=== PATIENT | male | born 1965 | race American Indian/Alaskan Native ===

== ENCOUNTER 2017-11-11 19:54 | Emergency (ER) | payer SELFPAY ==
--- NOTE | 2017-11-11 22:20 | Emergency Department Report ---
ED General Adult HPI - General Chief complaint: Rectal Pain Stated complaint: RECTAL ABCESS Time Seen by Provider: 11/11/17 22:03 Source: patient Mode of arrival: Ambulatory Limitations: No Limitations - History of Present Illness Initial comments: 2-3 wks of rectal pain. Worse with sitting. No urinary pain or pain on defecation. Afebrile. No n/v/d. Denies abd pain. Says that his body just feels sick. No urinary problems. Seen in the ER 3 months ago for similar complaint, which required I&D. No medical problems. - Related Data Previous Rx's Medication Instructions Recorded Last Taken Type HYDROcodone/APAP 5-325 [[place]ry 1 each PO Q8HR PRN #20 tablet 01/10/13 Unknown Rx 5/325 mg] HYDROcodone/APAP 5-325 [[place] 1 each PO Q8HR PRN #14 tablet 01/30/14 Unknown Rx 5/325] Levofloxacin [Levaquin] 750 mg PO QDAY #10 tablet 01/30/14 Unknown Rx Acetaminophen/Codeine [Tylenol #3] 1 tab PO Q6H PRN #15 tab 07/18/15 Unknown Rx Sulfamethoxazole/Trimethoprim 1 each PO BID #28 tablet 07/18/15 Unknown Rx [Bactrim DS TAB] Cephalexin [Keflex] 500 mg PO Q8HR #12 cap 11/11/17 Unknown Rx Allergies Allergy/AdvReac Type Severity Reaction Status Date / Time No Known Allergies Allergy Unverified 01/10/13 09:16 ED Review of Systems ROS: Stated complaint: RECTAL ABCESS Other details as noted in HPI Comment: All other systems reviewed and negative Skin: rash ED Past Medical Hx - Past Medical History Previous Medical History?: No - Surgical History Past Surgical History?: No - Social History Smoking Status: Current Every Day Smoker Substance Use Type: None - Medications Home Medications: Home Medications Medication Instructions Recorded Confirmed Last Taken Type HYDROcodone/APAP 5-325 [[place]ry 1 each PO Q8HR PRN #20 tablet 01/10/13 Unknown Rx 5/325 mg] HYDROcodone/APAP 5-325 [[place] 1 each PO Q8HR PRN #14 tablet 01/30/14 Unknown Rx 5/325] Levofloxacin [Levaquin] 750 mg PO QDAY #10 tablet 01/30/14 Unknown Rx Acetaminophen/Codeine [Tylenol #3] 1 tab PO Q6H PRN #15 tab 07/18/15 Unknown Rx Sulfamethoxazole/Trimethoprim 1 each PO BID #28 tablet 07/18/15 Unknown Rx [Bactrim DS TAB] Cephalexin [Keflex] 500 mg PO Q8HR #12 cap 11/11/17 Unknown Rx ED Physical Exam - General Limitations: No Limitations General appearance: alert, in no apparent distress - Head Head exam: Present: atraumatic, normocephalic - Eye Eye exam: Present: normal appearance - ENT ENT exam: Present: mucous membranes moist - Neck Neck exam: Present: normal inspection - Respiratory Respiratory exam: Present: normal lung sounds bilaterally. Absent: respiratory distress - Cardiovascular Cardiovascular Exam: Present: regular rate, normal rhythm. Absent: systolic murmur, diastolic murmur, rubs, gallop - GI/Abdominal GI/Abdominal exam: Present: soft, normal bowel sounds. Absent: distended, tenderness, guarding - Rectal Rectal exam: Present: deferred, other (left buttock with 1 cm circular purulent nodule x2. No perineal induration. Testicle exam unremarkable. ) - Extremities Exam Extremities exam: Present: normal inspection - Back Exam Back exam: Present: normal inspection - Neurological Exam Neurological exam: Present: alert, oriented X3 - Psychiatric Psychiatric exam: Present: normal affect, normal mood - Skin Skin exam: Present: warm, dry, intact, normal color. Absent: rash ED Course Vital Signs 11/11/17 11/11/17 20:42 22:29 Temperature 98.1 F 97.9 F Pulse Rate 61 51 L Respiratory 17 14 Rate Blood Pressure 118/79 Blood Pressure 112/68 [Left] O2 Sat by Pulse 99 98 Oximetry - I & D Left Buttocks Type of Procedure: Simple Blade Size: 11 Progress: Bedside ultrasound was used to visualize abscess pocket prior to incision. It was approximately 1/2 cm deep subcutaneous tissue. No vascular structures were seen around the abscess. Incision site was cleaned with a ChloraPrep 2. Abscess was incised with 11 blade. Purulent material was obtained. Loculations were broken up with hemostats. Wound was irrigated with normal saline. ED Medical Decision Making - Medical Decision Making 52-year-old male with no significant past medical history that presents to the ER with concern for buttock abscess. Vital signs are stable. Patient's well- appearing. No dental pain. Left buttock with 2 -1 cm purulent nodules. These were incised and drained. See procedure note for details. Patient has no medial induration. Testicular exam is unremarkable. Low suspicion for Juan Luis 's gangrene. He denies any urinary complaints at this point in time. Patient will be started on Keflex for antibiotic coverage and instructed to do sitz baths for the next 48 hours. Tetanus was updated in the ER. - Differential Diagnosis abscess, cellulitis, fourniere's, hemorrhoids Critical care attestation.: If time is entered above; I have spent that time in minutes in the direct care of this critically ill patient, excluding procedure time. ED Disposition Clinical Impression: Abscess Disposition: DC-01 TO HOME OR SELFCARE Is pt being admited?: No Does the pt Need Aspirin: No Condition: Stable Instructions: Abscess (ED) Additional Instructions: Sit in a warm bath with epson salt 3 times a day for 10 minutes each time for the next 48 hours. Prescriptions: Cephalexin [Keflex] 500 mg PO Q8HR #12 cap Referrals: PRIMARY CARE, [Primary Care Provider] - 3-5 Days
[2017-11-11] MEDS ORDERED: ULTRAM PO ONE (22:21)
[2017-11-11] MEDS ORDERED: KEFLEX PO ONE (22:21)
[2017-11-11 22:30] VITALS: BP 112/68
[2017-11-11] MEDS ORDERED: XYLOCAINE 1% MPF 5 mL ONE (22:30)
[2017-11-11] MEDS ORDERED: XYLOCAINE 1%/ EPI 1:100,000 INFILTRATI NR (23:00)
[2017-11-11] MEDS ORDERED: BOOSTRIX IM ONE (23:34)
== END 2017-11-11 23:55 | disposition home or self-care (01) ==
LOC: ED 19:54
DX: K61.1 Rectal abscess (principal); F17.200 Nicotine dependence, unspecified, uncomplicated
CPT/HCPCS: 90471; 90715; 99282

== ENCOUNTER 2017-11-25 07:44 | Inpatient (IN) | payer OTHER ==
[2017-11-25] MEDS ORDERED: TORADOL IV ONE (10:24)
[2017-11-25] MEDS ORDERED: CLEOCIN 600 MG/50 mL 600 MG/50 ML BAG IV ONE (10:25)
--- NOTE | 2017-11-25 10:27 | Emergency Department Report ---
Blank Doc - Documentation Documentation: Patient is a 52-year-old [place] male who is one-week status post I&D of a abscess to the left buttock who states for the last 24 hours he is now developed some swelling to the perineum. Patient is not diabetic and denies any fever. Patient states that he has some discomfort when he has a bowel movement and feels a stinging sensation. On focused physical exam do see the area that he had his I&D in the left buttock approximately 2 cm away from the anus. Patient now has a firm swelling to the perineum. Patient has no testicular pain at this time. CT of the abdomen and pelvis will be done to evaluate this area. Last been drawn patient be reassessed.
[2017-11-25 11:10] LABS: Alanine Aminotransferase 18 units/L (7-56); Albumin 4.2 g/dL (3.9-5); BUN/Creatinine Ratio 15; Blood Urea Nitrogen 15 mg/dL (9-20); Calcium 9.6 mg/dL (8.4-10.2); Hemolysis Index 2
--- NOTE | 2017-11-25 12:12 | Emergency Department Report ---
ED Male HPI - General Chief complaint: Urogenital-Male Stated complaint: SWOLLEN GENITAL Time Seen by Provider: 11/25/17 10:00 Source: patient Mode of arrival: Ambulatory Limitations: No Limitations - History of Present Illness Initial comments: This is a 52-year-old male nontoxic, well nourished in appearance, no acute signs of distress presents to the ED with c/o of scrotal swelling x1 day. Patient stated that he had a incision and drainage in his perianal area and has finished a course of antibiotics and resolved but then scrotal swelling occurred yesterday. Patient denies any trauma to the area. Patient denies any fever, chills, nausea, vomiting, chest pain, short of breath, headache, stiff neck, numbness or tingling. She denies any pus or drainage. Patient denies any testicular pain or penile pain. Patient denies any penile discharge. Patient denies any allergies to significant past medical history. MD Complaint: other (scrotal swelling) -: days(s) (1) Radiation: none Severity: mild Severity scale (0 -10): 8 Quality: aching Consistency: constant Improves with: none Worsens with: none swelling. denies: discharge, mass, rash, urinary retention, blood in urine, dysuria, fever, nausea/vomiting, incontinence - Related Data Home Medications Medication Instructions Recorded Confirmed Last Taken No Known Home Medications [No 11/25/17 11/25/17 Unknown Reported Home Medications] Allergies Allergy/AdvReac Type Severity Reaction Status Date / Time No Known Allergies Allergy Unverified 01/10/13 09:16 ED Review of Systems ROS: Stated complaint: SWOLLEN GENITAL Other details as noted in HPI Constitutional: denies: chills, fever Eyes: denies: eye pain, eye discharge, vision change ENT: denies: ear pain, throat pain Respiratory: denies: cough, shortness of breath, wheezing Cardiovascular: denies: chest pain, palpitations Endocrine: no symptoms reported Gastrointestinal: denies: abdominal pain, nausea, diarrhea Genitourinary: denies: urgency, dysuria Musculoskeletal: denies: back pain, joint swelling, arthralgia Skin: denies: rash, lesions Neurological: denies: headache, weakness, paresthesias Psychiatric: denies: anxiety, depression Hematological/Lymphatic: denies: easy bleeding, easy bruising ED Past Medical Hx - Past Medical History Previous Medical History?: No - Social History Smoking Status: Current Every Day Smoker - Medications Home Medications: Home Medications Medication Instructions Recorded Confirmed Last Taken Type No Known Home Medications [No 11/25/17 11/25/17 Unknown History Reported Home Medications] ED Physical Exam - General Limitations: No Limitations General appearance: alert, in no apparent distress - Head Head exam: Present: atraumatic, normocephalic - Eye Eye exam: Present: normal appearance Pupils: Present: normal accommodation - ENT ENT exam: Present: normal exam, mucous membranes moist - Neck Neck exam: Present: normal inspection, full ROM - Respiratory Respiratory exam: Present: normal lung sounds bilaterally. Absent: respiratory distress, wheezes, rales, rhonchi, stridor, chest wall tenderness, accessory muscle use, decreased breath sounds, prolonged expiratory - Cardiovascular Cardiovascular Exam: Present: regular rate, normal rhythm, normal heart sounds. Absent: bradycardia, tachycardia, irregular rhythm, systolic murmur, diastolic murmur, rubs, gallop - GI/Abdominal GI/Abdominal exam: Present: soft, normal bowel sounds. Absent: distended, tenderness, guarding, rebound, rigid, diminished bowel sounds - Rectal Rectal exam: Present: deferred - exam: Present: scrotal swelling. Absent: testicular tenderness, urethral discharge, vertical testicular lie External exam: Present: normal external exam. Absent: erythema, swelling, lesions, lacerations, ecchymosis, bleeding - Extremities Exam Extremities exam: Present: normal inspection, full ROM, normal capillary refill. Absent: tenderness, pedal edema - Back Exam Back exam: Present: normal inspection, full ROM. Absent: tenderness, CVA tenderness (R), CVA tenderness (L), muscle spasm, paraspinal tenderness, vertebral tenderness, rash noted - Neurological Exam Neurological exam: Present: alert, oriented X3, normal gait - Psychiatric Psychiatric exam: Present: normal affect, normal mood - Skin Skin exam: Present: warm, dry, intact, normal color. Absent: rash ED Course Vital Signs 11/25/17 07:54 Temperature 98.6 F Pulse Rate 75 Respiratory 15 Rate Blood Pressure 125/76 O2 Sat by Pulse 97 Oximetry - Reevaluation(s) Reevaluation #1: 11/25/17 14:18 Patient is speaking in full sentences with no signs of distress noted. - Consultations Consultation #1: 11/25/17 14:19 Patient has been consulted with Maude Beebe about patient history, physical exam, and labs and examined and screened patient and admission. ED Medical Decision Making - Lab Data Result diagrams: 11/25/17 12:19 11/25/17 10:30 - Medical Decision Making 52-year-old male that presents with scrotal swelling. Patient's abdomen was examined by me and Dr. Renteria. CT obtained. Labs with elevated WBC. PAtient received Levo and Cipro in the ED IV. PAtient was consulted with Dr. Bruno ( hospitalist) and accepts patient to services. At time of admission, the patient does not seem toxic or ill in appearance. No acute signs of distress noted. Patient agrees to admission treatment plan of care. No further questions noted by the patient. Critical care attestation.: If time is entered above; I have spent that time in minutes in the direct care of this critically ill patient, excluding procedure time. ED Disposition Clinical Impression: Scrotal swelling, Failure of outpatient treatment Disposition: OP ADMIT IP TO THIS HOSP Is pt being admited?: Yes Condition: Stable Referrals: PRIMARY CARE,MD [Primary Care Provider] - 3-5 Days
--- NOTE | 2017-11-25 12:40 | Cat Scan Report ---
CT ABDOMEN AND PELVIS WITH CONTRAST INDICATION: Perineal swelling. Recent incision and drainage of right buttock abscess. COMPARISON: 01/30/2014 CT. FINDINGS: Abdomen and pelvis CT performed following intravenous administration of 100 cc of Omnipaque 300. Contrast though noted only on the delayed phase images due to technical difficulty. LUNG BASES: Normal heart size. No effusions. Nonspecific distal esophageal wall prominence/thickening, not excluded for gastroesophageal reflux and/or hiatal hernia, amongst others. ABDOMEN: Liver, spleen, gallbladder, pancreas, adrenals, nonaneurysmal abdominal aorta, IVC and kidneys grossly within normal limits bilaterally without hydronephrosis, ascites or size significant adenopathy. A 3 mm indeterminate hepatic hypodensity centrally possible, axial series 4, image 12. Nonopacified GI tract evaluation limited, though grossly nonobstructive. Normal appendix. PELVIS: Mildly enlarged prostate creating an impression at the bladder base may again be correlated for clinically and with PSA. Mild urinary bladder diffuse exaggerated wall thickness again noted. Few prostatic calcifications. Few pelvic phleboliths. Unremarkable rectosigmoid. No free fluid or significant pelvic adenopathy. Stable 1.7 cm fat containing left inguinal hernia. Few small bilateral inguinal, likely reactive lymph nodes slightly more prominent measuring up to approximately 2 x 1.2 cm on the left, axial image 77, series 4. Asymmetric inflammatory changes/density measuring approximately 5 x 1.6 cm noted in the left perineum posteriorly, axial image 19 with minimal central hypodensity/possible fluid, though not felt to represent significant drainable component. Severe L5-S1 disc narrowing with vacuum phenomenon and mild degenerative spurring again noted. Additional mild degenerative spurring at few spinal levels. CONCLUSION: 1. Approximately 5 x 1.6 cm left posterior perineal inflammatory changes noted, as detailed above. No right buttock inflammatory changes or abscess identified. 2. Few other incidental findings as severe L5-S1 disc narrowing and an enlarged prostate with urinary bladder wall thickening, amongst others, as above. Thank you for the opportunity to participate in this patient's care.
[2017-11-25 12:45] LABS: Basophils # (Auto) 0.1 K/mm3 (0.0-0.1); Basophils % (Auto) 0.9 % (0.0-1.8); Eosinophils % (Auto) 0.2 % (0.0-4.3); Hematocrit 40.3 % (35.5-45.6); Hemoglobin 14.4 gm/dl (11.8-15.2); Lymphocytes # (Auto) 2.2 K/mm3 (1.2-5.4); Lymphocytes % (Auto) 13.2 % (13.4-35.0); Mean Corpuscular HGB Conc 36 % (32-34); Mean Corpuscular Hemoglobin 30 pg (28-32); Mean Corpuscular Volume 84 fl (84-94); Monocytes # (Auto) 1.9 K/mm3 (0.0-0.8); Monocytes % (Auto) 11.7 % (0.0-7.3); Platelet Count 234 K/mm3 (140-440); Red Blood Count 4.78 M/mm3 (3.65-5.03); Red Cell Distribution Width 13.4 % (13.2-15.2)
[2017-11-25] MEDS ORDERED: LEVAQUIN 750MG/150ML 750 MG/150 ML BAG IV ONE (13:48)
[2017-11-25] MEDS ORDERED: ZOFRAN IV PRN (14:53)
[2017-11-25] MEDS ORDERED: MORPHINE IV PRN (14:53)
[2017-11-25] MEDS ORDERED: PROVENTIL IH PRN (14:53)
[2017-11-25] MEDS ORDERED: TYLENOL PO PRN (14:53)
[2017-11-25] MEDS ORDERED: SODIUM CHLORIDE FLUSH SYRINGE 10 ML IV PRN (14:53)
--- NOTE | 2017-11-25 14:58 | History and Physical Report ---
History of Present Illness Chief complaint: I swollen History of present illness: 52 YO Male with Nicotine Dependence presents to ED for evaluation. Pt states that he has experienced swelling and pain in the perineum over the past 1 day with persistently worsening symptoms over the same time frame. Pt states that he had an incision and drainage in his perianal area for an abscess and has finished a course of antibiotics. Pt states that his symptoms had resolved but resumed after antibiotic therapy was finished. Patient denies fever, chills, foul drainage, trauma to the area, or recent ill contacts. Pt seen and evaluated in ED and found to have cellulitis to the perineum. Past History Past Medical History: other (Nicotine dependence) Past Surgical History: Other (perineal I&D) Social history: , smoking Family history: no significant family history Medications and Allergies Allergies Allergy/AdvReac Type Severity Reaction Status Date / Time No Known Allergies Allergy Unverified 01/10/13 09:16 Home Medications Medication Instructions Recorded Confirmed Last Taken Type No Known Home Medications [No 11/25/17 11/25/17 Unknown History Reported Home Medications] Active Meds: Active Medications Acetaminophen (Tylenol) 650 mg PO Q4H PRN PRN Reason: Pain MILD(1-3)/Fever >100.5/[facility] Albuterol (Proventil) 2.5 mg IH Q4HRT PRN PRN Reason: Shortness Of Breath Levofloxacin/Dextrose (Levaquin 750mg/150ml) 750 mg in 150 mls @ 100 mls/hr IV ONCE ONE Stop: 11/25/17 15:17 Last Admin: 11/25/17 14:01 Dose: 100 mls/hr Levofloxacin/Dextrose (Levaquin 750mg/150ml) 750 mg in 150 mls @ 100 mls/hr IV Q24HR FAHAD; Protocol Morphine Sulfate (Morphine) 2 mg IV Q4H PRN PRN Reason: Pain, Moderate (4-6) Ondansetron HCl (Zofran) 4 mg IV Q8H PRN PRN Reason: Nausea And Vomiting Oxycodone/Acetaminophen (Percocet 5/325) 1 tab PO Q6H PRN PRN Reason: Pain, Moderate (4-6) Sodium Chloride (Sodium Chloride Flush Syringe 10 Ml) 10 ml IV BID FAHAD Sodium Chloride (Sodium Chloride Flush Syringe 10 Ml) 10 ml IV PRN PRN PRN Reason: LINE FLUSH Review of Systems Constitutional: no weight loss, no weight gain, no fever, no chills Ears, nose, mouth and throat: no ear pain, no ear discharge, no tinnitis, no decreased hearing, no nose pain, no nasal congestion Cardiovascular: no chest pain, no orthopnea, no palpitations, no rapid/ irregular heart beat, no edema Respiratory: no cough, no cough with sputum, no excessive sputum, no hemoptysis , no shortness of breath Gastrointestinal: no nausea, no vomiting, no diarrhea, no constipation, no change in bowel habits Genitourinary Male: urinary hesitancy, nocturia, no dysuria, no hematuria, no incontinence, no testicular pain, no testicular lump, no kidney stones Rectal: no pain, no incontinence, no bleeding Musculoskeletal: no neck stiffness, no neck pain, no shooting arm pain, no arm numbness/tingling, no low back pain, no shooting leg pain Integumentary: no rash, no redness, no sores Neurological: no transient paralysis, no paralysis, no weakness, no parathesias , no numbness, no tingling, no seizures Psychiatric: no anxiety, no memory loss, no change in sleep habits, no sleep disturbances, no insomnia, no hypersomnia, no change in appetite, no change in libido Endocrine: no cold intolerance, no heat intolerance, no polyphagia, no excessive thirst, no polydipsia, no polyuria, no nocturia Hematologic/Lymphatic: no easy bruising, no easy bleeding, no lymphadenopathy, no lymphedema Allergic/Immunologic: no urticaria, no allergic rhinitis, no wheezing Exam - Constitutional Vitals: Temp Pulse Resp BP Pulse Ox 98.6 F 75 15 125/76 97 11/25/17 07:54 11/25/17 07:54 11/25/17 07:54 11/25/17 07:54 11/25/17 07:54 General appearance: Present: mild distress - EENT Eyes: Present: PERRL ENT: hearing intact, clear oral mucosa - Neck Neck: Present: supple, normal ROM - Respiratory Respiratory effort: normal Respiratory: bilateral: CTA - Cardiovascular Heart Sounds: Present: S1 & S2. Absent: rub, click - Extremities Extremities: pulses symmetrical, No edema Peripheral Pulses: within normal limits - Abdominal General gastrointestinal: Present: soft, non-tender, non-distended, normal bowel sounds Male genitourinary: Present: tender (erythema, induration to perineum) - Integumentary Integumentary: Present: clear, warm, dry - Musculoskeletal Musculoskeletal: gait normal, strength equal bilaterally - Psychiatric Psychiatric: appropriate mood/affect, intact judgment & insight - Neurologic Neurologic: CNII-XII intact, moves all extremities Results - Labs CBC & Chem 7: 11/25/17 12:19 11/25/17 10:30 Labs: Abnormal lab results 11/25/17 Range/Units 12:19 WBC 16.5 H (4.5-11.0) K/mm3 MCHC 36 H (32-34) % Lymph % (Auto) 13.2 L (13.4-35.0) % [place] % (Auto) 11.7 H (0.0-7.3) % [place] # 1.9 H (0.0-0.8) K/mm3 Seg Neutrophils % 74.0 H (40.0-70.0) % Seg Neutrophils # 12.2 H (1.8-7.7) K/mm3 Assessment and Plan - Patient Problems (1) SIRS (systemic inflammatory response syndrome) Current Visit: Yes Status: Acute Plan to address problem: IV antibiotics, IVF resuscitation, wound care, CT Abdomen pelvis, serial exam of perineum. (2) Cellulitis, perineum Current Visit: Yes Status: Acute Plan to address problem: IV antibiotics, wound care, pain control. (3) Cystitis Current Visit: Yes Status: Acute Plan to address problem: IV antibiotics, monitor uop q shift, outpatient urology f/u care. (4) DVT prophylaxis Current Visit: Yes Status: Acute Plan to address problem: scd to ble while in bed.
[2017-11-25 14:59] LABS: Bilirubin,Urine Negative (Negative); Blood,Urine Negative (Negative); Color,Urine Straw (Yellow)
[2017-11-25 15:00] LABS: RBC,Urine < 1.0 /HPF (0.0-6.0); Urobilinogen,Urine < 2.0 mg/dL (<2.0); WBC,Urine < 1.0 /HPF (0.0-6.0)
[2017-11-25] MEDS ORDERED: PERCOCET 5/325 ONE (15:40)
[2017-11-25] MEDS: PERCOCET 5/325 PO PRN (15:45)
[2017-11-25] MEDS: SODIUM CHLORIDE FLUSH SYRINGE 10 ML IV SCH (22:40)
[2017-11-26] MEDS: PERCOCET 5/325 PO PRN ×2 (09:02→21:08)
[2017-11-26] MEDS: LEVAQUIN 750MG/150ML 750 MG/150 ML BAG IV SCH (10:05)
[2017-11-26 10:18] LABS: Basophils % (Auto) 0.3 % (0.0-1.8); Eosinophils # (Auto) 0.1 K/mm3 (0.0-0.4); Eosinophils % (Auto) 0.4 % (0.0-4.3); Hematocrit 37.6 % (35.5-45.6); Hemoglobin 13.1 gm/dl (11.8-15.2); Lymphocytes # (Auto) 1.7 K/mm3 (1.2-5.4); Lymphocytes % (Auto) 8.8 % (13.4-35.0); Mean Corpuscular HGB Conc 35 % (32-34); Mean Corpuscular Hemoglobin 30 pg (28-32); Mean Corpuscular Volume 85 fl (84-94); Monocytes # (Auto) 2.3 K/mm3 (0.0-0.8); Platelet Count 199 K/mm3 (140-440); Red Cell Distribution Width 13.6 % (13.2-15.2)
[2017-11-26] MEDS: SODIUM CHLORIDE FLUSH SYRINGE 10 ML IV SCH ×2 (10:37→21:10)
--- NOTE | 2017-11-26 14:55 | Progress Note ---
Assessment and Plan Assessment and plan: 52-year-old -[place] male with past medical history significant for perineal abscess presented to the emergency department his complaints of fever and pain around the perineal area. Sepsis - Evidenced by leukocytosis and fever - Blood culture ordered Perineal cellulitis, ?Abscess - Continue IV antibiotics - Pain control - Surgery consult DVT prophylaxis - On Lovenox Disposition - Continue inpatient care History Interval history: Patient was seen and evaluated this morning, patient was complaining pain around the perineal area. Hospitalist Physical - Physical exam Narrative exam: Not in cardiopulmonary distress. The patient appeared well nourished and normally developed. Vital signs as documented. Head exam is unremarkable. No scleral icterus . Neck is without jugular venous distension, thyromegaly, or carotid bruits. Lungs are clear to auscultation. Cardiac exam reveals regular rate and Rhythm. First and second heart sounds normal. No murmurs, rubs or gallops. Abdominal exam reveals normal bowel sounds, no masses, no organomegaly and no aortic enlargement. Extremities are nonedematous and both femoral and pedal pulses are normal. Pain and tenderness around the perineal area. MUSEUM DIRECTOR: Alert and oriented 3. No focal weakness. - Constitutional Vitals: Temp Pulse Resp BP Pulse Ox 99.0 F 59 L 18 112/67 96 11/26/17 12:21 11/26/17 12:21 11/26/17 12:21 11/26/17 12:21 11/26/17 12:21 General appearance: Present: mild distress Results - Labs CBC & Chem 7: 11/26/17 09:42 11/25/17 10:30 Labs: Laboratory Last Values WBC 18.9 K/mm3 (4.5-11.0) H 11/26/17 09:42 RBC 4.40 M/mm3 (3.65-5.03) 11/26/17 09:42 Hgb 13.1 gm/dl (11.8-15.2) 11/26/17 09:42 Hct 37.6 % (35.5-45.6) 18 09:42 MCV 85 fl (84-94) 11/26/17 09:42 MCH 30 pg (28-32) 11/26/17 09:42 MCHC 35 % (32-34) H 11/26/17 09:42 RDW 13.6 % (13.2-15.2) 11/26/17 09:42 Plt Count 199 K/mm3 (140-440) 11/26/17 09:42 Lymph % (Auto) 8.8 % (13.4-35.0) L 11/26/17 09:42 [place] % (Auto) 12.0 % (0.0-7.3) H 11/26/17 09:42 Eos % (Auto) 0.4 % (0.0-4.3) 11/26/17 09:42 Baso % (Auto) 0.3 % (0.0-1.8) 11/26/17 09:42 Lymph # 1.7 K/mm3 (1.2-5.4) 11/26/17 09:42 [place] # 2.3 K/mm3 (0.0-0.8) H 11/26/17 09:42 Eos # 0.1 K/mm3 (0.0-0.4) 11/26/17 09:42 Baso # 0.0 K/mm3 (0.0-0.1) 11/26/17 09:42 Seg Neutrophils % 78.5 % (40.0-70.0) H 11/26/17 09:42 Seg Neutrophils # 14.9 K/mm3 (1.8-7.7) H 11/26/17 09:42 Sodium 138 mmol/L (137-145) 11/25/17 10:30 Potassium 4.1 mmol/L (3.6-5.0) 11/25/17 10:30 Chloride 101.5 mmol/L (98-107) 11/25/17 10:30 Carbon Dioxide 25 mmol/L (22-30) 11/25/17 10:30 Anion Gap 16 mmol/L 11/25/17 10:30 BUN 15 mg/dL (9-20) 11/25/17 10:30 Creatinine 1.0 mg/dL (0.8-1.5) 11/25/17 10:30 Estimated GFR > 60 ml/min 11/25/17 10:30 BUN/Creatinine Ratio 15 % 11/25/17 10:30 Glucose 93 mg/dL (75-100) 11/25/17 10:30 Calcium 9.6 mg/dL (8.4-10.2) 11/25/17 10:30 Total Bilirubin 0.80 mg/dL (0.1-1.2) 11/25/17 10:30 AST 20 units/L (5-40) 11/25/17 10:30 ALT 18 units/L (7-56) 11/25/17 10:30 Alkaline Phosphatase 90 units/L (35-129) 11/25/17 10:30 Total Protein 7.7 g/dL (6.3-8.2) 11/25/17 10:30 Albumin 4.2 g/dL (3.9-5) 11/25/17 10:30 Albumin/Globulin Ratio 1.2 % 11/25/17 10:30 Prostate Specific Ag 0.19 ng/mL (0.00-4.00) 11/25/17 16:27 Urine Color Straw (Yellow) 11/25/17 12:28 Urine Turbidity Clear (Clear) 11/25/17 12:28 Urine pH 6.0 (5.0-7.0) 11/25/17 12:28 Ur Specific [place] 1.010 (1.003-1.030) 11/25/17 12:28 Urine Protein 30 mg/dl mg/dL (Negative) 11/25/17 12:28 Urine Glucose (UA) Negative mg/dL (Negative) 11/25/17 12:28 Urine Ketones Negative mg/dL (Negative) 11/25/17 12:28 Urine Blood Negative (Negative) 11/25/17 12:28 Urine Nitrite Negative (Negative) 11/25/17 12:28 Urine Bilirubin Negative (Negative) 11/25/17 12:28 Urine Urobilinogen < 2.0 mg/dL (<2.0) 11/25/17 12:28 Ur Leukocyte Esterase Negative (Negative) 11/25/17 12:28 Urine WBC (Auto) < 1.0 /HPF (0.0-6.0) 11/25/17 12:28 Urine RBC (Auto) < 1.0 /HPF (0.0-6.0) 11/25/17 12:28
--- NOTE | 2017-11-26 14:56 | Consultation ---
History of Present Illness Consult date: 11/26/17 Chief complaint: scrotal swelling - History of present illness History of present illness: 52-year-old male with no past medical history presents to the emergency room with complaints of not feeling well, generalized body aches and chills, and scrotal swelling. Patient was in the emergency room approximately 2 weeks ago for a boil on his left buttock. The patient underwent incision and drainage in the emergency room and was given instructions for sitz baths as well as oral antibiotics. He states that he felt well up until the last day of his antibiotics, when he started feeling weak, having generalized body aches, and chills. He did not check his temperature, but states he felt hot and cold. Dates she also noted a knot on his scrotum, following in the perineum, and difficulty with urinating. He has never had an abscess like this in the past. He has never had a colonoscopy. Past History Past Medical History: No medical history, other (Nicotine dependence) Past Surgical History: Other (perineal I&D) Social history: , smoking Family history: no significant family history Medications and Allergies Allergies Allergy/AdvReac Type Severity Reaction Status Date / Time No Known Allergies Allergy Unverified 01/10/13 09:16 Home Medications Medication Instructions Recorded Confirmed Last Taken Type No Known Home Medications [No 11/25/17 11/25/17 Unknown History Reported Home Medications] Active Meds: Active Medications Acetaminophen (Tylenol) 650 mg PO Q4H PRN PRN Reason: Pain MILD(1-3)/Fever >100.5/[facility] Last Admin: 11/26/17 00:53 Dose: 650 mg Albuterol (Proventil) 2.5 mg IH Q4HRT PRN PRN Reason: Shortness Of Breath Levofloxacin/Dextrose (Levaquin 750mg/150ml) 750 mg in 150 mls @ 100 mls/hr IV Q24HR FAHAD; Protocol Last Admin: 11/26/17 10:05 Dose: 100 mls/hr Morphine Sulfate (Morphine) 2 mg IV Q4H PRN PRN Reason: Pain, Moderate (4-6) Ondansetron HCl (Zofran) 4 mg IV Q8H PRN PRN Reason: Nausea And Vomiting Oxycodone/Acetaminophen (Percocet 5/325) 1 tab PO Q6H PRN PRN Reason: Pain, Moderate (4-6) Last Admin: 11/26/17 09:02 Dose: 1 tab Sodium Chloride (Sodium Chloride Flush Syringe 10 Ml) 10 ml IV BID FAHAD Last Admin: 11/26/17 10:37 Dose: 10 ml Sodium Chloride (Sodium Chloride Flush Syringe 10 Ml) 10 ml IV PRN PRN PRN Reason: LINE FLUSH Review of Systems All systems: negative (N point review of systems was performed and negative except for that listed in HPI) Exam Vital Signs Temp Pulse Resp BP Pulse Ox 98.6 F 75 15 125/76 97 11/25/17 07:54 11/25/17 07:54 11/25/17 07:54 11/25/17 07:54 11/25/17 07:54 Narrative exam: Gen.: Awake, alert, oriented 3. No apparent distress CV: S1, S2 present Respiratory: No audible wheezes Extremities: No clubbing, cyanosis, edema : I and D incision of left perirectal region has almost completely healed. There is a pinpoint opening, under which there is fluctuance and a small amount of pus can be expressed. There is induration of the perineum and the posterior most aspect of the scrotum. There is no fluctuance, this area is nontender, and there is no erythema. Results - Labs 11/26/17 09:42 11/25/17 10:30 Abnormal lab results 11/26/17 Range/Units 09:42 WBC 18.9 H (4.5-11.0) K/mm3 MCHC 35 H (32-34) % Lymph % (Auto) 8.8 L (13.4-35.0) % [place] % (Auto) 12.0 H (0.0-7.3) % [place] # 2.3 H (0.0-0.8) K/mm3 Seg Neutrophils % 78.5 H (40.0-70.0) % Seg Neutrophils # 14.9 H (1.8-7.7) K/mm3 - Imaging CT scan - abdomen: report reviewed CT scan - pelvis: report reviewed, image reviewed Assessment and Plan 52 yo M with perirectal abscess, sepsis Plan: 1. c/w IV abx 2. sitz baths TID 3. prn pain control - avoid narcotics 4. stool softener 5. repeat CBC in am, trend WBC Patient with elevated WBC and fevers. On exam, patient has some fluctuance and purulent drinage from pinpoint area in almost healed prior incision and drainage site. I suspect that he may have healed before the infection completely resolved. In addition, he has induration of his perineum/posterior scrotal area which may be an extension of perirectal abscess. Will make NPO p MN and plan for incision and drainage of perirectal abscess, EUA in the OR tomorrow. Patient is agreeable and consent obtained. Thank you for this consultation, please call with questions or concerns.
[2017-11-26] MEDS ORDERED: MIRALAX 3350 PO PRN (14:57)
[2017-11-26] MEDS: LOVENOX SUB-Q SCH (21:09)
[2017-11-27 05:58] LABS: Basophils % (Auto) 0.3 % (0.0-1.8); Eosinophils # (Auto) 0.2 K/mm3 (0.0-0.4); Eosinophils % (Auto) 1.4 % (0.0-4.3); Hematocrit 37.6 % (35.5-45.6); Hemoglobin 13.3 gm/dl (11.8-15.2); Lymphocytes % (Auto) 12.7 % (13.4-35.0); Mean Corpuscular HGB Conc 35 % (32-34); Mean Corpuscular Hemoglobin 30 pg (28-32); Mean Corpuscular Volume 85 fl (84-94); Monocytes # (Auto) 2.3 K/mm3 (0.0-0.8); Monocytes % (Auto) 14.3 % (0.0-7.3); Platelet Count 198 K/mm3 (140-440); Red Blood Count 4.43 M/mm3 (3.65-5.03); Red Cell Distribution Width 13.9 % (13.2-15.2)
[2017-11-27] MEDS ORDERED: MARCAINE 0.5% 30 ML INFILTRATI ONE (06:30)
[2017-11-27] MEDS ORDERED: HYDROGEN PEROXIDE ONE (06:30)
[2017-11-27] MEDS ORDERED: SUBLIMAZE ONE (07:22)
[2017-11-27] MEDS ORDERED: XYLOCAINE MPF 2% ONE (07:22)
[2017-11-27] MEDS ORDERED: QUELICIN ONE (07:22)
[2017-11-27] MEDS ORDERED: LACTATED RINGERS 1,000 ML ONE (07:22)
[2017-11-27] MEDS ORDERED: DIPRIVAN 10 MG/ML IV ONE ×2 (07:23→08:02)
[2017-11-27] MEDS ORDERED: PEPCID IV ONE (07:28)
[2017-11-27] MEDS ORDERED: VERSED IV NR (07:28)
--- NOTE | 2017-11-27 07:33 | Anesthesia Consultation ---
Anesthesia Consult and Med Hx Date of service: 11/27/17 - Airway Anesthetic Teeth Evaluation: Good ROM Head & Neck: Adequate Mental/Hyoid Distance: Adequate Mallampati Class: Class II Intubation Access Assessment: Good - Pulmonary Exam CTA: Yes - Cardiac Exam Cardiac Exam: No Murmur - Pre-Operative Health Status ASA Pre-Surgery Classification: ASA2 - Pulmonary Hx Smoking: Yes - Other Systems Hx Cancer: No
--- NOTE | 2017-11-27 07:33 | Anesthesia Day of Surgery ---
Anesthesia Day of Surgery - Day of Surgery Patient Examined: Yes Patient H&P Reviewed: Yes Patient is NPO: Yes
[2017-11-27] MEDS ORDERED: MARCAINE 0.5% INFILTRATI ONE (07:55)
[2017-11-27] MEDS ORDERED: NACL 0.9% IR ONE (07:55)
[2017-11-27] MEDS ORDERED: LACTATED RINGERS 1,000 ML IV SCH (08:00)
[2017-11-27] MEDS ORDERED: PEPCID IV NR (08:00)
--- NOTE | 2017-11-27 08:28 | Post Operative Note ---
Date of procedure: 11/27/17 Pre-op diagnosis: perirectal abscess Post-op diagnosis: other (perirectal and scrotal abscess) Findings: 1. small residual perirectal abscess 2. posterior scrotal/perineal abscess with 20 cc of pus and debris Procedure: incision and drainage of perirectal and scrotal abscess Anesthesia: MAC, local Surgeon: GOLDIE MEYER Estimated blood loss: minimal Pathology: list (1. perirectal abscess culture, 2. scrotal abscess culture) Specimen disposition: to lab Condition: stable Disposition: PACU
--- NOTE | 2017-11-27 10:08 | Operative Report ---
Operative Report Operative Report: Date of procedure: 11/27/17 Pre-op diagnosis: perirectal abscess Post-op diagnosis: other (perirectal and scrotal abscess) Findings: 1. small residual perirectal abscess 2. posterior scrotal/perineal abscess with 20 cc of pus and debris Procedure: incision and drainage of perirectal and scrotal abscess Anesthesia: MAC, local Surgeon: GOLDIE MEYER Estimated blood loss: minimal Pathology: list (1. perirectal abscess culture, 2. scrotal abscess culture) Specimen disposition: to lab Condition: stable Disposition: PACU HPI an indication: Patient is a 52-year-old male who presented to the hospital with complaints of scrotal swelling. Of note he had a recent history of incision and drainage of perirectal abscess in the emergency room. The patient was febrile with a leukocytosis. A CT scan of the abdomen and pelvis revealed a 5 cm region and the peritoneum concerning for induration, possible abscess. On exam, fluctuance was evident. Therefore, the patient was consented for a incision and drainage of perirectal abscess after all risks, benefits, alternatives were discussed and questions answered. Procedure in detail: Patient was identified in the preoperative area and taken back to the operating room, placed on the operating room table in prone position. After anesthesia was induced, his buttocks were retracted with tape. The rectum, perirectal area, perineum were prepped and draped in usual sterile fashion and a timeout performed. Local anesthetic was infiltrated into the skin incision from either incision and drainage. Using a blade, this was opened and there was drainage of mixture of seroma and pus. Cultures were obtained. The wound was probed with a hemostat and all loculations broken up. The chest cavity measured 3 cm x 1cm x 2cm (length/width/depth). Next, using ultrasound guidance, a fluid collection was identified in the perineum/posterior scrotal area. Using a 18-gauge needle the fluid collection was aspirated and there was return of pus. Cultures were obtained. Local anesthetic was infiltrated into the skin over the intended incision site. Using an 11 blade a 1 cm incision was made over the area of the fluid collection. Using hemostat, all loculations were broken up and a total of 20 mL of purulent material and debris was evacuated. The abscess cavity measured 5 cm x 3cm x 1cm (length/width/depth). A solution of the collection was seen on ultrasound. Both wounds were irrigated with saline and hemostasis achieved with pressure. The wounds were then packed with one piece of 1/4 inch iodoform each (total of 2 pieces). This was covered with a fluff gauze and ABD, tape. At the end of the case, all sponge, instrument, sharp counts were correct 2. The patient was awoken from anesthesia, and taken to PACU in stable condition.
[2017-11-27] MEDS: LEVAQUIN 750MG/150ML 750 MG/150 ML BAG IV SCH (11:29)
[2017-11-27] MEDS: PERCOCET 5/325 PO PRN ×2 (13:54→22:21)
--- NOTE | 2017-11-27 14:26 | Progress Note ---
Assessment and Plan Assessment and plan: 52-year-old -[place] male with past medical history significant for perineal abscess presented to the emergency department his complaints of fever and pain around the perineal area. Sepsis - Evidenced by leukocytosis and fever - We'll monitor CBC - Blood culture ordered Perineal cellulitis, Abscess - Continue IV antibiotics - Surgery consulted and did incision and drainage of this abscess in the perineal area and posterior part of the DVT prophylaxis - On Lovenox Disposition -Possible discharge tomorrow History Interval history: Patient was seen and evaluated this morning, patient didn't have any new complaints, tolerated the procedure well. Hospitalist Physical - Physical exam Narrative exam: Not in cardiopulmonary distress. The patient appeared well nourished and normally developed. Vital signs as documented. Head exam is unremarkable. No scleral icterus . Neck is without jugular venous distension, thyromegaly, or carotid bruits. Lungs are clear to auscultation. Cardiac exam reveals regular rate and Rhythm. First and second heart sounds normal. No murmurs, rubs or gallops. Abdominal exam reveals normal bowel sounds, no masses, no organomegaly and no aortic enlargement. Extremities are nonedematous and both femoral and pedal pulses are normal. Clean dressing perineal area. 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 No focal weakness. - Constitutional Vitals: Temp Pulse Resp BP Pulse Ox 99.6 F 57 L 16 113/76 99 11/27/17 13:14 11/27/17 13:14 11/27/17 13:14 11/27/17 13:14 11/27/17 13:14 General appearance: Present: mild distress Results - Labs CBC & Chem 7: 11/27/17 05:23 11/25/17 10:30 Labs: Laboratory Last Values WBC 16.0 K/mm3 (4.5-11.0) H 11/27/17 05:23 RBC 4.43 M/mm3 (3.65-5.03) 11/27/17 05:23 Hgb 13.3 gm/dl (11.8-15.2) 11/27/17 05:23 Hct 37.6 % (35.5-45.6) 11/27/17 05:23 MCV 85 fl (84-94) 11/27/17 05:23 MCH 30 pg (28-32) 11/27/17 05:23 MCHC 35 % (32-34) H 11/27/17 05:23 RDW 13.9 % (13.2-15.2) 11/27/17 05:23 Plt Count 198 K/mm3 (140-440) 11/27/17 05:23 Lymph % (Auto) 12.7 % (13.4-35.0) L 11/27/17 05:23 [place] % (Auto) 14.3 % (0.0-7.3) H 11/27/17 05:23 Eos % (Auto) 1.4 % (0.0-4.3) 11/27/17 05:23 Baso % (Auto) 0.3 % (0.0-1.8) 11/27/17 05:23 Lymph # 2.0 K/mm3 (1.2-5.4) 11/27/17 05:23 [place] # 2.3 K/mm3 (0.0-0.8) H 11/27/17 05:23 Eos # 0.2 K/mm3 (0.0-0.4) 11/27/17 05:23 Baso # 0.0 K/mm3 (0.0-0.1) 11/27/17 05:23 Seg Neutrophils % 71.3 % (40.0-70.0) H 11/27/17 05:23 Seg Neutrophils # 11.4 K/mm3 (1.8-7.7) H 11/27/17 05:23 Sodium 138 mmol/L (137-145) 11/25/17 10:30 Potassium 4.1 mmol/L (3.6-5.0) 11/25/17 10:30 Chloride 101.5 mmol/L (98-107) 11/25/17 10:30 Carbon Dioxide 25 mmol/L (22-30) 11/25/17 10:30 Anion Gap 16 mmol/L 11/25/17 10:30 BUN 15 mg/dL (9-20) 11/25/17 10:30 Creatinine 1.0 mg/dL (0.8-1.5) 11/25/17 10:30 Estimated GFR > 60 ml/min 11/25/17 10:30 BUN/Creatinine Ratio 15 % 11/25/17 10:30 Glucose 93 mg/dL (75-100) 11/25/17 10:30 Calcium 9.6 mg/dL (8.4-10.2) 11/25/17 10:30 Total Bilirubin 0.80 mg/dL (0.1-1.2) 11/25/17 10:30 AST 20 units/L (5-40) 11/25/17 10:30 ALT 18 units/L (7-56) 11/25/17 10:30 Alkaline Phosphatase 90 units/L (35-129) 11/25/17 10:30 Total Protein 7.7 g/dL (6.3-8.2) 11/25/17 10:30 Albumin 4.2 g/dL (3.9-5) 11/25/17 10:30 Albumin/Globulin Ratio 1.2 % 11/25/17 10:30 Prostate Specific Ag 0.19 ng/mL (0.00-4.00) 11/25/17 16:27 Urine Color Straw (Yellow) 11/25/17 12:28 Urine Turbidity Clear (Clear) 11/25/17 12:28 Urine pH 6.0 (5.0-7.0) 11/25/17 12:28 Ur Specific [place] 1.010 (1.003-1.030) 11/25/17 12:28 Urine Protein 30 mg/dl mg/dL (Negative) 11/25/17 12:28 Urine Glucose (UA) Negative mg/dL (Negative) 11/25/17 12:28 Urine Ketones Negative mg/dL (Negative) 11/25/17 12:28 Urine Blood Negative (Negative) 11/25/17 12:28 Urine Nitrite Negative (Negative) 11/25/17 12:28 Urine Bilirubin Negative (Negative) 11/25/17 12:28 Urine Urobilinogen < 2.0 mg/dL (<2.0) 11/25/17 12:28 Ur Leukocyte Esterase Negative (Negative) 11/25/17 12:28 Urine WBC (Auto) < 1.0 /HPF (0.0-6.0) 11/25/17 12:28 Urine RBC (Auto) < 1.0 /HPF (0.0-6.0) 11/25/17 12:28
[2017-11-27] MEDS: LOVENOX SUB-Q SCH (22:13)
[2017-11-27] MEDS: SODIUM CHLORIDE FLUSH SYRINGE 10 ML IV SCH (22:14)
[2017-11-28 05:45] LABS: Hematocrit 36.7 % (35.5-45.6); Hemoglobin 13.1 gm/dl (11.8-15.2); Mean Corpuscular HGB Conc 36 % (32-34); Mean Corpuscular Hemoglobin 30 pg (28-32); Mean Corpuscular Volume 84 fl (84-94); Platelet Count 216 K/mm3 (140-440); Red Blood Count 4.38 M/mm3 (3.65-5.03); Red Cell Distribution Width 13.6 % (13.2-15.2)
[2017-11-28] MEDS: PERCOCET 5/325 PO PRN (05:46)
[2017-11-28] MEDS: LEVAQUIN 750MG/150ML 750 MG/150 ML BAG IV SCH (10:52)
[2017-11-28] MEDS: SODIUM CHLORIDE FLUSH SYRINGE 10 ML IV SCH (10:53)
--- NOTE | 2017-11-28 11:35 | Discharge Summary ---
<GOLDIE MEYER - Last Filed: 11/28/17 12:04> Providers - Providers Date of Admission: 11/25/17 14:53 Attending physician: MANA CHEEMA MD 11/25/17 20:07 Consult to Wound/ET Nurse [CONS] Routine Reason For Exam: wound eval 11/26/17 08:32 Consult to Physician [CONS] Routine Comment: Consulting Provider: NIMA GOLD Physician Instructions: Reason For Exam: Perianal abscess Primary care physician: CARDIOPULMONARY PHYSICAL THERAPIST Hospitalization Condition: Stable Disposition: DC-01 TO HOME OR SELFCARE Exam - Constitutional Vitals: Temp Pulse Resp BP Pulse Ox 98.6 F 49 L 20 120/79 100 11/28/17 04:55 11/28/17 04:55 11/28/17 06:46 11/28/17 04:55 11/28/17 04:55 Plan Wound: other (Perform sitz baths as discussed 3 times per day and after every bowel movement. Keep area of wound clean and dry. Use wet wipes to clean area if you cannot do a sitz bath.) Follow up with: GOLDIE MEYER DO [Staff Physician] - 7 Days PRIMARY CAREMD [Primary Care Provider] - 3-5 Days Prescriptions: Amoxicillin/K Clav Tab [Augmentin 875 mg] 1 tab PO Q12HR #14 tab oxyCODONE /ACETAMINOPHEN [Percocet 5/325 mg] 1 tab PO Q6H PRN #12 tablet PRN Reason: Pain, Moderate (4-6) <MANA CHEEMA - Last Filed: 11/28/17 13:28> Providers - Providers Date of Admission: 11/25/17 14:53 Attending physician: MANA CHEEMA MD 11/25/17 20:07 Consult to Wound/ET Nurse [CONS] Routine Reason For Exam: wound eval 11/26/17 08:32 Consult to Physician [CONS] Routine Comment: Consulting Provider: NIMA GOLD Physician Instructions: Reason For Exam: Perianal abscess Primary care physician: CARDIOPULMONARY PHYSICAL THERAPIST Hospitalization Reason for admission: perianal abscess Time spent for discharge: 32 minutes - Discharge Diagnoses (1) Cellulitis, perineum Status: Acute (2) Perirectal abscess Status: Acute (3) Scrotal abscess Status: Acute Core Measure Documentation - Palliative Care Palliative Care/ Comfort Measures: Not Applicable - Core Measures Any of the following diagnoses?: none Exam - Physical Exam Narrative exam: Not in cardiopulmonary distress. The patient appeared well nourished and normally developed. Vital signs as documented. Head exam is unremarkable. No scleral icterus . Neck is without jugular venous distension, thyromegaly, or carotid bruits. Lungs are clear to auscultation. Cardiac exam reveals regular rate and Rhythm. First and second heart sounds normal. No murmurs, rubs or gallops. Abdominal exam reveals normal bowel sounds, no masses, no organomegaly and no aortic enlargement. Extremities are nonedematous and both femoral and pedal pulses are normal. Clean dressing perineal area. 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 No focal weakness. - Constitutional Vitals: Temp Pulse Resp BP Pulse Ox 98.6 F 49 L 20 120/79 100 11/28/17 04:55 11/28/17 04:55 11/28/17 06:46 11/28/17 04:55 11/28/17 04:55 Plan Activity: no restrictions Weight Bearing Status: Full Weight Bearing
--- NOTE | 2017-11-28 12:06 | Progress Note ---
Assessment and Plan 52 yo M s/p incision and drainage of perirectal and scrotal abscess POD 1 1. transition to oral abx - levaquin/flagyl or augmentin x 10 days 2. sitz baths TID and after every bowel movement. Discussed with patient 3. Pt to follow up in surgery office in 1 wk Ok for DC from surgery standpoint. Subjective Date of service: 11/28/17 Narrative: Pt seen and examined. Feels well. No fevers in the last 24 hours. Objective Vital Signs - 12hr 11/28/17 11/28/17 11/28/17 00:07 04:55 05:46 Temperature 98.8 F 98.6 F Pulse Rate 51 L 49 L Respiratory 16 16 20 Rate Blood Pressure 97/62 120/79 O2 Sat by Pulse 96 100 Oximetry 11/28/17 06:46 Temperature Pulse Rate Respiratory 20 Rate Blood Pressure O2 Sat by Pulse Oximetry - General physical appearance Narrative Exam: Gen: AAOx3. NAD : scrotal wound and perirectal wound packing removed (2 pieces). No additional purulent drainage or fluctuance. Minimal induration. - Labs 11/28/17 04:57 11/25/17 10:30
[2017-11-28 13:16] VITALS: BP 144/94
== END 2017-11-28 13:10 | disposition home or self-care (01) | DRG 854 ==
LOC: ED 07:44 → 3A 14:53
PROVIDERS: ADMIT Internal Medicine; ATTEND Internal Medicine
PROC: 0D9P0ZZ Drainage of Rectum, Open Approach (ICD-10-PCS; principal; 2017-11-27)
PROC: 0V953ZZ Drainage of Scrotum, Percutaneous Approach (ICD-10-PCS; 2017-11-27)
PROC: BV44ZZZ Ultrasonography of Scrotum (ICD-10-PCS; 2017-11-27)
PROC: 0V950ZZ Drainage of Scrotum, Open Approach (ICD-10-PCS; 2017-11-27)
DX: A41.9 Sepsis, unspecified organism (principal); K61.1 Rectal abscess; L03.315 Cellulitis of perineum; L02.215 Cutaneous abscess of perineum; N30.00 Acute cystitis without hematuria; N49.2 Inflammatory disorders of scrotum; F17.200 Nicotine dependence, unspecified, uncomplicated
CPT/HCPCS: 36415; 74177; 80048; 80053; 81001; 84153; 85025; 85027; 87040; 87075; 87116; 99406; J0330; J1650; J1885; J1956; J2250; J2270; J2704; J3010; J7120; Q9967